=== PATIENT | male | born 1965 | race Hispanic/Latino ===

== ENCOUNTER 2022-05-01 07:26 | Emergency (ER) | payer OTHER ==
[~2022-05-01] VITALS: Ht 167.6 cm; Wt 104.3 kg
[2022-05-01] MEDS ORDERED: KETOROLAC 15MG/ML VIAL (15MG/ML) IV ONE (07:30)
[2022-05-01] MEDS ORDERED: 0.9%NACL 1000ML 1,000 ML IV ONE (08:00)
[2022-05-01 08:06] LABS: BASOPHILS % (AUTO) 0.5 % (0.0-5.0); EOSINOPHILS % (AUTO) 0.6 % (0.0-8.0); HEMATOCRIT 42.4 % (42-54); LYMPHOCYTES % (AUTO) 32.6 % (21.0-51.0); MEAN CORPUSCULAR HEMOGLOBIN 32.9 pg (27.0-33.0); MEAN CORPUSCULAR HGB CONC 35.1 g/dL (32.0-36.0); MEAN CORPUSCULAR VOLUME 93.6 fL (79-99); MONOCYTES % (AUTO) 7.8 % (3.0-13.0); PLATELET COUNT (AUTO) 230 K/uL (130-400); RED BLOOD CELL COUNT(AUTO) 4.53 MIL/uL (4.50-6.20); RED CELL DISTRIBUTION WIDTH 13.2 % (11.0-15.5); WHITE BLOOD COUNT (AUTO) 11.1 K/uL (4.8-10.8)
[2022-05-01 08:25] LABS: ALBUMIN 3.9 g/dL (3.5-5.0); CREATININE 0.9 mg/dL (0.5-1.5); POTASSIUM 3.1 mmol/L (3.5-5.1); TOTAL PROTEIN, SERUM 8.1 g/dL (6.0-8.3)
[2022-05-01] MEDS ORDERED: MORPHINE 4 MG SYG IVP SCH (09:00)
[2022-05-01] MEDS ORDERED: PROCHLORPERAZINE 10MG/2ML INJ IV SCH (09:00)
[2022-05-01] MEDS ORDERED: DIAZEPAM 5 MG/ML 2 ML SYG IVP SCH (09:00)
[2022-05-01] MEDS ORDERED: POTASSIUM BICARB/CIT AC 25 MEQ TABLET.EFF PO SCH (09:30)
[2022-05-01] MEDS ORDERED: PROPOFOL 10 MG/ML 20ML VIAL IV ONE (11:03)
[2022-05-01] MEDS ORDERED: IOHEXOL 350 MG/ML 100ML INFUS..BTL IV ONE (11:28)
[2022-05-01] MEDS ORDERED: MORPHINE 4 MG SYG IVP ONE (11:30)
[2022-05-01] MEDS ORDERED: PROPOFOL 10 MG/ML 20ML VIAL IV SCH (11:30)
[2022-05-01] MEDS ORDERED: METH4TAB3 PO (14:05)
[2022-05-01 14:17] VITALS: BP 141/84
== END 2022-05-01 14:42 | disposition home or self-care (01) ==
LOC: EDH 07:26 → EDBD 07:26 → EDH 14:42
DX: S43.004A Unspecified dislocation of right shoulder joint, initial encounter (principal); S30.1XXA Contusion of abdominal wall, initial encounter; S80.812A Abrasion, left lower leg, initial encounter; S80.811A Abrasion, right lower leg, initial encounter; X58.XXXA Exposure to other specified factors, initial encounter; Y93.89 Activity, other specified; Y92.89 Other specified places as the place of occurrence of the external cause; Y99.8 Other external cause status
CPT/HCPCS: 99285; 72125; 23650; 96374; 96375; 71045; 96361; 82550; 84484; 80053; 85025; 36415; 73030; 71260; 74177; 73020; 96376; J3360; J0780; J2270 ×2; J1885; Q9967; J2704